=== PATIENT | male | born 1955 | race Caucasian/White ===

== ENCOUNTER 2018-10-03 08:22 | Outpatient (CLI) | payer OTHER ==
[2018-10-03] MEDS ORDERED: ISOVUE-370 76%-LOCM 1 ML ONE (10:34)
--- NOTE | 2018-10-03 12:26 | CT ---
CT ABDOMEN AND PELVIS WITH ORAL AND IV CONTRAST: Date: 10/03/18 HISTORY: Generalized abdominal pain, epigastric and lower pelvic pain and constipation. FINDINGS: The lung bases are clear. The liver demonstrates decreased attenuation compared to the spleen, consistent with fatty infiltrati on. No abnormal biliary ductal dilatation is seen. No calcified gallstones are noted. There are calcified granulomas in the spleen. The pancreas, adrenal glands, and kidneys are normal. N o free air, free fluid, or lymphadenopathy seen in the abdomen or pelvis. There are vascular calcific ations with a 3.0 cm infrarenal abdominal aortic aneurysm. There are degenerative changes in the spi ne. There is a tiny calcified granuloma in the liver. The small bowel loops are not abnormally dilate d. A normal appearing appendix is present. There are a couple of tiny low density lesion in the left lobe of the liver, too small to characterize. IMPRESSION: 1. Fatty liver. 2. Old granulomatous disease. 3. 3.0 cm infrarenal abdominal aortic aneurysm. POS: OFF
== END 2018-10-03 08:23 | disposition home or self-care (01) ==
LOC: BICCT 08:22
PROVIDERS: ATTEND Family Medicine
DX: R10.84 Generalized abdominal pain (principal); K76.0 Fatty (change of) liver, not elsewhere classified; D71 Functional disorders of polymorphonuclear neutrophils; I71.4 Abdominal aortic aneurysm, without rupture
CPT/HCPCS: 74177; 82565